=== PATIENT | female | born 1995 | race Caucasian/White ===

== ENCOUNTER 2022-12-31 12:00 | Outpatient (RCR) | payer OTHER, SELFPAY ==
[2022-12-30 13:58] LABS: Hematocrit 34.9 % (37.0-47.0); Hemoglobin 11.1 g/dL (12.0-15.0)
[2022-12-30 14:11] LABS: Glucose 1 Hour PP 50gm Dose 89 mg/dL
[2022-12-30 14:52] LABS: HIV 1/2 Ab P24 Ag Result Negative (Negative)
[2022-12-31] MEDS: RHO(D) IMMUNE GLOBULIN 300 MCG/2 ML SYRINGE IM (08:44)
== END 2022-12-31 13:00 | disposition home or self-care (01) ==
LOC: ANHLAB 12:00
PROVIDERS: Visit Provider Advanced Practice Midwife
DX: Z11.4 Encounter for screening for human immunodeficiency virus [HIV] (principal); Z29.13 Encounter for prophylactic Rho(D) immune globulin; O36.0190 Maternal care for anti-D [Rh] antibodies, unspecified trimester, not applicable or unspecified; Z3A.00 Weeks of gestation of pregnancy not specified
CPT/HCPCS: 36415; 82947; 85014; 85018; 85461; 86703; 86850; 86900; 86901; 90384; 96372; G0432; J2790

== ENCOUNTER 2023-03-14 16:51 | Inpatient (IN) | payer OTHER, SELFPAY ==
[2023-03-14] VITALS (26 sets, daily range): BP systolic 100–137; BP diastolic 59–85; PULSE 83–116; RESP 16; TEMP 35.9; BMI 44.9
--- NOTE | 2023-03-14 17:30 | P.PNAN_ITS ---
Anes - Eval Pre Procedure Procedure: Labor epidural Date/Time: 03/14/23 17:30 Surgeon: Sahara Preop Diagnosis: Abdominal pain with contractions Pre Op Diagnosis: Induction of Labor Patient Data Age: 27 Gender: F Height: Weight: Last Vital Signs Pulse 116 H 03/14/23 17:16 BP 124/79 03/14/23 17:16 Allergies Allergy/AdvReac Type Severity Reaction Status Date / Time amoxicillin Allergy Swelling Verified 02/22/23 13:22 Penicillins Allergy Swelling Verified 12/31/22 08:43 Home Medications Medication Instructions Recorded Confirmed Type vits no.126-ferrous fum 1 tablet PO DAILY 02/22/23 02/22/23 History 28 mg iron-folic acid 800 mcg tablet (Classic ) : gestational age HCG: positive Patient hx anesthesia problems: none Family hx anesthesia problems: none Results Review: All pre-operative results and documents have been reviewed as part of the pre- operative evaluation. PMFSH Past Medical History Medical History Anxiety Migraines OCD (obsessive compulsive disorder) JORGE (obstructive sleep apnea) and not yet delivered Family History Family History Other Unknown family medical history Social History Social History Substance use: current Spiritual care concerns: No Exam Day of Procedure 03/14/23 17:30 Patient weight: obese
--- NOTE | 2023-03-14 18:02 | LDADM ---
This patient, Yumi Gallagher, was admitted to Labor/Delivery/Recovery 106 on 03/14/23 at 16:51. Plans for labor, pain management and were discussed with patient. Patient/family oriented to hospital policies and general routines including ID bracelet, bed and alarms, visiting hours, pain management, procedures, bathroom and other care routines, personal items, smoking policy, room service/diet and guest tray routines, security routines, and visiting hours. Patient/Family are encouraged to report perceived risks to care and to ask questions if they do not understand what they are told or what they should do. See OBIX for further documentation.
[2023-03-14 18:20] LABS: Basophils Percent Auto 0.3 % (0.2-1.2); Eosinophils Absolute Auto 0.1 K/mm3 (0-0.3); Eosinophils Percent Auto 0.8 % (0-4.4); Hematocrit 33.9 % (37.0-47.0); Hemoglobin 10.8 g/dL (12.0-15.0); Immature Granulocyte Absolute 0.07 K/mm3 (0.00-0.031); Immature Granulocyte Percent A 0.6 % (0-0.5); Lymphocytes Absolute Auto 2.76 K/mm3 (0.9-3.2); Lymphocytes Percent Auto 23.5 % (18.3-44.2); Mean Corpuscular HGB Conc 31.9 g/dl (32-36); Mean Corpuscular Hemoglobin 26.3 pg (26-34); Mean Corpuscular Volume 82.7 fl (80-100); Mean Platelet Volume 11.2 fl (7.4-10.4); Monocytes Percent Auto 8.9 % (2.6-8.5); Neutrophils Absolute Auto 7.8 K/mm3 (1.3-6.7); Neutrophils Percent Auto 65.9 % (45.5-73.1); Platelet Count Result 265 k/mm3 (150-375); Red Cell Distribution Width 13.9 % (11.5-14.5); White Blood Count 11.8 K/mm3 (4.5-10.0)
[2023-03-14] MEDS: OXYTOCIN 30 UNITS/NS 500 ML 30 UNITS/500 ML BAG IV CONT (18:50)
[2023-03-14] MEDS: LACTATED RINGERS 1,000 ML 125 ML IV CONT (18:50)
[2023-03-14 19:20] LABS: Amphetamine Screen Urine Negative (Negative); Barbiturate Screen Urine Negative (Negative); Benzodiazepines Screen Urine Negative (Negative); Cannabinoid Screen Urine Positive (Negative); Cocaine Screen Urine Negative (Negative); Methadone Screen Urine Negative (Negative); Opiate Screen Urine Negative (Negative); Phencyclidine Screen Urine Negative (Negative)
[2023-03-15] VITALS (109 sets, daily range): BP systolic 74–160; BP diastolic 32–115; PULSE 63–147; RESP 16–18; TEMP 36.5–36.9; O2SAT 95–100
[2023-03-15] MEDS: FAMOTIDINE 20 MG/2 ML VIAL IV PUSH (00:54)
[2023-03-15] MEDS: LACTATED RINGERS 1,000 ML 125 ML IV CONT ×2 (02:56→07:20)
--- NOTE | 2023-03-15 07:19 | WPDOBADMIT ---
Obstetrics - Admit Note Admission Note: record reviewed. No pertinent additions to the history and/or any subsequent changes in the physical findings that are not consistent with the expected course of the were found. Additions to the history and/or subsequent changes in the physical findings follow. IOL, SROM, thick meconium, bs US, vertex
[2023-03-15] MEDS: ONDANSETRON INJ 4 MG/2 ML VIAL IV PUSH (08:13)
--- NOTE | 2023-03-15 09:48 | WPDANESEPP ---
Anes - Eval Pre Procedure Procedure: Labor Epidural Date/Time: 03/15/23 09:48 Surgeon: Sahara Preop Diagnosis: Labor Pain Pre Op Diagnosis: Induction of Labor Patient Data Age: 27 Gender: F Height: 1.55 m Weight: 108 kg Last Vital Signs Temp 36.5 C 03/15/23 09:00 Pulse 79 03/15/23 09:46 Resp 16 03/14/23 22:21 BP 138/63 03/15/23 09:46 Pulse Ox 96 03/15/23 08:35 O2 Del Method Room Air 03/14/23 18:01 Allergies Allergy/AdvReac Type Severity Reaction Status Date / Time amoxicillin Allergy Swelling Verified 03/14/23 17:59 Penicillins Allergy Swelling Verified 03/14/23 17:59 Home Medications Medication Instructions Recorded Confirmed Type vits no.126-ferrous fum 1 tablet PO DAILY 02/22/23 03/14/23 History 28 mg iron-folic acid 800 mcg tablet (Classic ) Laboratory Tests 03/14/23 03/14/23 18:12 18:59 WBC 11.8 H K/mm3 (4.5-10.0) RBC 4.10 L M/mm3 (4.2-5.4) Hgb 10.8 L g/dL (12.0-15.0) Hct 33.9 L % (37.0-47.0) MCV 82.7 fl (80-100) MCH 26.3 pg (26-34) MCHC 31.9 L g/dl (32-36) RDW 13.9 % (11.5-14.5) Plt Count 265 k/mm3 (150-375) MPV 11.2 H fl (7.4-10.4) Immature Gran % (Auto) 0.6 H % (0-0.5) Neut % (Auto) 65.9 % (45.5-73.1) Lymph % (Auto) 23.5 % (18.3-44.2) [place] % (Auto) 8.9 H % (2.6-8.5) Eos % (Auto) 0.8 % (0-4.4) Baso % (Auto) 0.3 % (0.2-1.2) Lymph # (Auto) 2.76 K/mm3 (0.9-3.2) [place] # (Auto) 1.0 H K/mm3 (0.1-0.6) Eos # (Auto) 0.1 K/mm3 (0-0.3) Baso # (Auto) 0.0 K/mm3 (0.0-0.1) Abs Immat Gran (auto) 0.07 H K/mm3 (0.00-0.031) Absolute Neuts (auto) 7.8 H K/mm3 (1.3-6.7) Absolute Nucleated RBC 0.0 K/mm3 (0.0-0.012) Nucleated RBC % 0.0 % (0.0-0.2) Urine Opiates Screen Negative (Negative) Urine Methadone Screen Negative (Negative) Ur Barbiturates Screen Negative (Negative) Ur Phencyclidine Scrn Negative (Negative) Ur Amphetamine Screen Negative (Negative) U Benzodiazepines Scrn Negative (Negative) Urine Cocaine Screen Negative (Negative) U Cannabinoids Screen Positive A (Negative) RPR Pending Blood Type O Negative Antibody Screen Negative : gestational age HCG: positive Patient hx anesthesia problems: none Family hx anesthesia problems: none Results Review: All pre-operative results and documents have been reviewed as part of the pre-operative evaluation. [facility] Past Medical History Medical History Anxiety Migraines OCD (obsessive compulsive disorder) JORGE (obstructive sleep apnea) and not yet delivered Family History Family History Other Unknown family medical history Social History Social History Smoking status: Never smoker Substance use: current Lack of Transportation: No Lack of Food: Sometimes True Current Housing: I Have Housing Concerned About Future Housing: No Difficulty Paying Gas/Electric Bills: YES Difficulty Paying for Meds: No Currently Unemployed: No Education: High School Diploma/GED Difficulty w/ Childcare or Family Care: No Spiritual care concerns: No Exam Day of Procedure 03/15/23 09:48
--- NOTE | 2023-03-15 10:47 | P.PNOB_ITS ---
Pain Control Date/time seen: 03/15/23 10:47 delete
--- NOTE | 2023-03-15 10:47 | PM.OBPNLAB ---
Pain Control Date/time seen: 03/15/23 10:47 delete
--- NOTE | 2023-03-15 10:47 | PM.OBPRVD ---
OB - Vaginal Delivery Note Procedure Delivery date: 03/15/23 Induction method: Per Pitocin Protocol Delivery monitor: External FHT and External Uterine Route of delivery: Laceration Description: None Specimen: Yes Quantitative Blood Loss (ml): 125 Anesthesia type: Epidural Disposition: Floor Baby Date of : 03/15/23 Time of : 10:38 Weeks of gestation at delivery: 39 Infant gender: Female presentation: vertex position: Left Occiput Anterior Placenta delivery description: Spontaneous Cord Vessel Description: 3 Vessels score one minute: 8 score five minutes: 9 Narrative: copious meconium present, cord clamped and cut, baby to warmer, resource room special education teacher at bs, mother and baby in stable condition
[2023-03-15] MEDS: OXYTOCIN 30 UNITS/NS 500 ML 30 UNITS/500 ML BAG 125 UNITS IV CONT (11:10)
[2023-03-15] MEDS: WITCH HAZEL 40 PADS 1 PAD TOPICAL (13:19)
[2023-03-15] MEDS: BENZOCAINE 20% AER SPR (*SP) 56 GM CAN 1 SPRAY TOPICAL (13:19)
--- NOTE | 2023-03-15 13:40 | OBPPTRN ---
Patient transferred to post room # 279 via wheelchair accompanied by support person and family. PT introductions made and plan of care discussed per post , pain management, breast feeding and daily care activities. PT and fob both recipients of such instructions and no barriers to learning identified at this time. PT received such instructions per one to one discussion, mom baby care guide and demonstrations this shift. Oriented to unit, room, information board, rooming in, admission packet and security measures. Patient verbalizes understanding.
[2023-03-15 14:39] LABS: Rapid Plasma Reagin Non-Reactive (NonReactive)
[2023-03-15] MEDS: ACETAMINOPHEN 325 MG TABLET 650 MG PO (17:01)
[2023-03-15] MEDS: DOCUSATE SODIUM 100 MG CAPSULE PO (17:02)
[2023-03-15] MEDS: IBUPROFEN 600 MG TABLET PO (17:02)
[2023-03-15] MEDS: LANOLIN (LANSINOH) 7.5 GM CREAM 1 APPLIC TOPICAL (17:04)
[2023-03-16 00:15] VITALS: BP 102/60; PULSE 87; RESP 16; TEMP 36.7; O2SAT 99
[2023-03-16] MEDS: ACETAMINOPHEN 325 MG TABLET 650 MG PO ×3 (00:19→16:49)
[2023-03-16] MEDS: IBUPROFEN 600 MG TABLET PO ×3 (00:20→16:50)
[2023-03-16 05:46] LABS: Hematocrit 30.8 % (37.0-47.0); Hemoglobin 9.7 g/dL (12.0-15.0)
--- NOTE | 2023-03-16 08:14 | PM.OBPNVD ---
OB - PN: Subj Subjective Date/time seen: 03/16/23 08:14 Patient comments: no complaints, pain well controlled, incisional pain, tolerating diet and flatus present OB - PN: Obj Data Labs 03/16/23 05:18 Labs: Laboratory Results - last 24 hr 03/14/23 03/16/23 18:12 05:18 Hgb 9.7 L Hct 30.8 L RPR Non-reactive OB - PN A/P Plan day: 1 Plan: routine care Comments: No problems, routine care Time Spent With Patient Time: Total time spent is greater than 50% in coordination of care (as documented) at patient's floor/unit and/or counseling patient: Exam Const: General: comfortable, no acute distress and alert Resp: Effort & Inspection: normal respiratory effort Auscultation: no crackles, no rales and no rhonchi Cardio: Rate: regular rate Heart sounds: no click, no murmurs and no rubs GI: Inspection: non-distended GI Palp: No Tenderness to palpation present (GI) Auscultation: normal bowel sounds Other: Incision - CDI Extrem: General: normal to inspection, no pedal edema and no calf tenderness
--- NOTE | 2023-03-16 08:15 | PM.OBDSVD ---
DS: Admitting Diagnosis Discharge Date March 16, 2023 Admitting Diagnosis term OB - DS: Summary OB Procedures : None OB Procedures Intrapartum: Spontaneous Vag Delivery OB Procedures: : None Peripartum Data Laceration Description: None Time Spent with Patient Time attestation: Total time spent providing and/or coordinating discharge services: DS: Data Data Completed and Pending Pending studies at discharge: Pending at discharge 03/16/23 07:23 Surgical [PTH] Routine Labs on day of discharge: Labs from last 24 hours 03/16/23 03/14/23 05:18 18:12 Hgb 9.7 L Hct 30.8 L RPR Non-reactive Discharge Plan Discharge Discharging Clinician: Chantell Shoemaker Patient Disposition: Home, Self-Care Activity: pelvic rest Diet: regular Patient Instructions: Antibiotic Form Stand Alone Forms: General Discharge Information Follow-up/Referrals: Chantell Shoemaker MD [Physician] - Discharge Medications: Continued Classic 28 mg iron- 800 mcg Tablet 1 tablet PO DAILY Date of admission: 03/14/23 16:51 Primary Care Provider: PHYSICIAN,VIDEO GAME PROGRAMMER Admitting Provider: Chantell Shoemaker Attending physician on admission: Chantell Shoemaker Condition: Stable
--- NOTE | 2023-03-16 08:30 | PC.NURSE ---
PT introductions made and plan of care discussed per post , pain management, breast feeding, daily care activities and pending discharge. PT and fob both recipients of such instructions and no barriers to learning identified at this time. PT received such instructions per one to one discussion, mom baby care guide and demonstrations this shift and pt verbalized understanding of such care.
[2023-03-16 08:32] VITALS: PULSE 83; RESP 18; O2SAT 99
[2023-03-16] MEDS: DOCUSATE SODIUM 100 MG CAPSULE PO ×2 (08:32→16:50)
[2023-03-16] MEDS: MULTIVIT/MIN/PREN/FOL AC/IRON TABLET 1 TAB PO (08:32)
[2023-03-16] MEDS: POLYSACCHARIDE IRON COMPLEX 150 MG CAPSULE PO ×2 (08:32→16:49)
[2023-03-16 09:10] VITALS: BP 116/80; PULSE 83; RESP 18; TEMP 36.9; O2SAT 99
--- NOTE | 2023-03-16 10:36 | WPDANLDPN2 ---
Anes-Prog Note L&D Date/Time: 03/16/23 10:36 Comfortable throughout: labor and delivery Neuraxial method: epidural Epidural/Spinal procedure site: clean & non-tender Neuro status: Neuro function grossly intact. Cardiovascular status: normal Respiratory status: normal Airway patency: baseline Mental status: baseline Post-Op hydration status: normal Vital Signs: Last Vital Signs Temp 36.9 C 03/16/23 09:10 Pulse 83 03/16/23 09:10 Resp 18 03/16/23 09:10 BP 116/80 03/16/23 09:10 Pulse Ox 99 03/16/23 09:10 O2 Del Method Room Air 03/15/23 13:40 Pain score (VAS): 05/10 I/O: Intake & Output 03/15/23 03/16/23 03/16/23 23:59 07:59 15:59 Intake Total 500 Balance 500 Post-procedural complaints: none Patient feedback: Patient satisfied with anesthetic care.
--- NOTE | 2023-03-16 11:27 | PC.NURSE ---
[id number] Introductions were made and Mother verbalizes she is able to independently latch with appropriate positioning/alignment. She denies any nipple discomfort and is responsively . Infant is currently meeting outcomes for weight, output, jaundice and feeding frequencies of 8-12 times in 24 hours. Mother declines any additional assistance/education at this time. Mother is encouraged to call for assistance if her doesn?t latch or there is discomfort with latching. Mother voiced understanding of information shared. RN's name written on the communication board along with offer of assistance if there's pain with latching, if doesn't wake to breastfeed or any questions or concerns. Mother is reminded of the mom/baby guide for an additional resource
--- NOTE | 2023-03-16 17:30 | PC.NURSE ---
Patient was given the opportunity to view the discharge video Mother & Baby Care, The First Two Weeks and to ask questions. Patient declined viewing the video and has been given the mother/baby guide for home reference. PT received discharge instructions per protocol and verbalized understanding of such care.
--- NOTE | 2023-03-16 17:52 | PC.NURSE ---
PT discharged to home ambulatory accompanied by fob and infant and taken to waiting car. Follow up appts confirmed
[2023-03-17 15:09] VITALS: BP 122/79; PULSE 97; RESP 18; TEMP 36.8; O2SAT 97
== END 2023-03-16 17:52 | disposition home or self-care (01) | DRG 560 ==
LOC: ANHLDR 16:57 → ANHOB2 03-15 13:41
PROVIDERS: Advanced Practice Midwife; Admitting Provider Obstetrics & Gynecology; Visit Provider Obstetrics & Gynecology
DX: O77.0 Labor and delivery complicated by meconium in amniotic fluid (principal); Z37.0 Single live birth; O99.324 Drug use complicating childbirth; F12.90 Cannabis use, unspecified, uncomplicated; Z3A.39 39 weeks gestation of pregnancy
CPT/HCPCS: 36415; 80307; 85014; 85018; 85025; 86592; 86850; 86900; 86901; 88307; A9270; J2405; J2590; J2795; J7120